=== PATIENT | female | born 1965 | race Two or more races ===

== ENCOUNTER → 2017-03-14 | Outpatient (CLI) | payer BC ==
[~2017-03-14] MED LIST: ALTACE PO; ANTI-DIARRHEAL2 M1 PO; CIPRO250 MG PO; FEVERALL650 MG/SUP PR; FLEXERIL PO; FLEXERIL10 MG PO; GABAPENTIN300 MG PO; GLUCOPHAGE500 M1 PO; GLUCOTROL10 MG PO; HYDROCHLOROTHIA25 MG PO; IBUPROFEN800 MG PO; JANUVIA100 MG PO; KEFLEX PO; LANTUS100 U/ML SUBQ; LOPRESSOR PO; METFORMIN HCL1000 M1 PO; METOPROLOL SUCC25 MG PO; NORCO 5/325 TAB1 TAB PO; NOVOLOG100 U/ML SUBQ; NOVOLOG7030 SUBQ; PHENERGAN25 MG PO; PRINIVIL10 MG PO; PRINIVIL40 MG PO; REGLAN PO; SIMVASTATIN40 MG PO; SPIRONOLAC1 TAB 25/2 PO; VICODIN PO; VOLTAREN75 MG PO; ZOCOR PO
--- NOTE | ~2017-03-14 | MY11 ---
[facility] A Service of [facility] RADIOLOGY TEXT RESULTS PATIENT: JOE MORRISON LOCATION: [facility] : 63 UNIT #: [id number] AGE: [address]: Emanuel Guerrero APRN SEX: F ORDER DR: [id number] [facility] [address] [place], [place] [address] [id number] O MR#: [id number] Acc #: [id number] NAME: JOE MORRISON : 1965 SEX: F STUDY DATE/TIME: 03/14/2017 13:28 UNIT: [facility] ROOM: STUDY DESCRIPTION: MY Mammogram Screening Dig Kristian Attending Physician: Emanuel Guerrero A.P.R.N. Ordering Physician: Emanuel Guerrero A.P.R.N. Primary Care Physician: Misael Thomas M.D. MEDICAL IMAGING REPORT This report is preliminary unless electronic signature is present EXAM Bilateral digital screening mammogram with CAD, 03/14/2017. HISTORY 67-yearold asymptomatic female with no personal or family history of breast cancer. FINDINGS The background breast parenchyma consists of scattered fibroglandular densities. No suspicious mass, microcalcification, architectural distortion. The exam is compared to prior mammogram dated 10/04/2012. IMPRESSION Negative mammogram. BIRADS 1. Recommendations: Annual screening mammogram. Patients over the age of 40 are entered into a reminder system with target due date for the next mammogram. A result letter will also be sent to the patient. BIRADS: 1 - negative Dictated by... Parminder Estrada M.D. THIS IS AN ELECTRONICALLY VERIFIED REPORT Parminder Estrada M.D. at 03/14/2017 4:25 PM [facility]/esvin TD: 03/14/2017 15:28 [facility] A Service of [facility] RADIOLOGY TEXT RESULTS PATIENT: JOE MORRISON LOCATION: [facility] : 63 UNIT #: [id number] AGE: [address]: Emanuel Guerrero APRN SEX: F ORDER DR: JOB #: [id number] MEDICAL IMAGING REPORT Page 1 of 1 COPY
== END | disposition home or self-care (01) ==
LOC: CWCC 12:58
DX: Z12.31 Encounter for screening mammogram for malignant neoplasm of breast (principal)
CPT/HCPCS: G0202